=== PATIENT | female | born 1960 | race Caucasian/White ===

== ENCOUNTER 2022-04-24 10:34 | Outpatient (CLI) | payer OTHER | END 2022-04-24 10:35 | disposition home or self-care (01) | LOC: CSHMAMMO 10:34 | PROVIDERS: ATTEND Family Medicine | DX: Z12.31 Encounter for screening mammogram for malignant neoplasm of breast (principal) | CPT/HCPCS: 77063; 77067 ==

== ENCOUNTER 2023-09-10 14:41 | Outpatient (CLI) | payer OTHER | END 2023-09-10 14:42 | disposition home or self-care (01) | LOC: CSHMAMMO 14:41 | PROVIDERS: ATTEND Family Medicine | DX: Z12.31 Encounter for screening mammogram for malignant neoplasm of breast (principal) | CPT/HCPCS: 77063; 77067 ==

== ENCOUNTER 2023-10-11 13:43 | Outpatient (CLI) | payer OTHER | END 2023-10-11 13:44 | disposition home or self-care (01) | LOC: CSHMRI 13:43 | PROVIDERS: ATTEND Physician Assistant Surgical | DX: G95.11 Acute infarction of spinal cord (embolic) (nonembolic) (principal); M47.812 Spondylosis without myelopathy or radiculopathy, cervical region; M48.02 Spinal stenosis, cervical region | CPT/HCPCS: 72156; 72157; 82565 ==